=== PATIENT | female | born 1990 | race Two or more races ===

== ENCOUNTER 2016-10-27 12:42 | Outpatient (CLI) | payer OTHER | END 2016-10-27 12:43 | disposition home or self-care (01) | LOC: NC 12:42 | PROVIDERS: ATTEND Advanced Practice Midwife | DX: O99.210 Obesity complicating pregnancy, unspecified trimester (principal) ==

== ENCOUNTER 2016-11-28 16:16 | Emergency (ER) | payer OTHER | END 2016-11-28 17:18 | disposition home or self-care (01) | LOC: ED 16:16 | DX: J02.9 Acute pharyngitis, unspecified (principal); R59.1 Generalized enlarged lymph nodes ==